=== PATIENT | female | born 1985 | race Caucasian/White ===

== ENCOUNTER → 2021-05-19 | Outpatient (CLI) | payer SELFPAY ==
--- NOTE | 2021-05-19 16:49 | Diagnostic Imaging Report ---
EXAMINATION: Right hip unilateral, 2 or 3 views (w/pelvis when done). HISTORY: Pain. COMPARISON: None available. FINDINGS: There is a small subchondral cystic area along the anterior femoral head/neck junction of the right hip which is sometimes seen in patients with impingement type symptoms, correlate clinically. There are no fractures or dislocations. The joint space is intact and symmetric. The soft tissues are unremarkable. IMPRESSION: No acute process. Incidentally noted is subchondral cystic change, most consistent with synovial pit, within the right femoral head/neck junction as described above. Dictated by: Dictated on workstation # [id number]
== END ==
LOC: RAD 15:37
PROVIDERS: ATTEND Internal Medicine
DX: M25.551 Pain in right hip (principal)